=== PATIENT | male | born 1975 | race Caucasian/White ===

== ENCOUNTER 2017-03-01 10:52 | Emergency (ER) | payer BC ==
[2017-03-01] MEDS ORDERED: Sodium Chloride 0.9% 1,000 ML IV STA (11:17)
[2017-03-01] MEDS ORDERED: Atropine-Diphenoxylate 0.025-2.5 mg Tab PO STA (11:18)
[2017-03-01 11:19] VITALS: BP 119/78; PULSE 90; RESP 18; TEMP 99.1; O2SAT 96
--- NOTE | 2017-03-01 11:24 | ED PDOC ---
HPI: Abdomen Time Seen by Provider: 03/01/17 11:05 Chief Complaint (Nursing): Abdominal Pain Chief Complaint (Provider): Abdominal Pain History Per: Patient History/Exam Limitations: no limitations Onset/Duration Of Symptoms: Days (x this morning) Current Symptoms Are (Timing): Still Present Additional Complaint(s): Gadiel is a 41 year old male who presents to the emergency department complaining of diarrhea associated with lower abdominal pain since last night. Denies any fever, blood in stool, vomiting or recent travel outside of [facility]. PMD: Provider in [place] Past Medical History Reviewed: Historical Data, Nursing Documentation, Vital Signs Vital Signs: Last Vital Signs Temp 99.1 F 03/01/17 11:17 Pulse 90 03/01/17 11:17 Resp 18 03/01/17 11:17 BP 119/78 03/01/17 11:17 Pulse Ox 96 03/01/17 11:32 - Medical History PMH: HTN, Hypercholesterolemia, Hyperlipidemia Denies: HIV, Chronic Kidney Disease - Surgical History Surgical History: No Surg Hx - Family History Family History: States: Hypertension - Social History Alcohol: None Drugs: Denies - Home Medications Home Medications: Ambulatory Orders Medication Instructions Recorded Aspirin [Ecotrin] 81 mg PO DAILY #0 tabec 11/02/15 Atropine/Diphenoxylate [Lonox 1 tab PO Q8 #10 tab 03/01/17 0.025 MG-2.5 MG] - Allergies Allergies/Adverse Reactions: Allergies Allergy/AdvReac Type Severity Reaction Status Date / Time No Known Allergies Allergy Verified 03/01/17 11:07 Review of Systems ROS Statement: Except As Marked, All Systems Reviewed And Found Negative Constitutional: Negative for: Fever Gastrointestinal: Positive for: Abdominal Pain (Lower), Diarrhea. Negative for : Vomiting, Hematochezia Physical Exam - Reviewed Nursing Documentation Reviewed: Yes Vital Signs Reviewed: Yes - Physical Exam Cardiovascular/Chest: Positive for: Regular Rate, Rhythm Respiratory: Positive for: Normal Breath Sounds. Negative for: Respiratory Distress Gastrointestinal/Abdominal: Positive for: Tenderness (Miminal lower quadrant tenderness bilaterally) Extremity: Positive for: Normal ROM (Full ROM) - Laboratory Results Result Diagrams: 03/01/17 11:27 03/01/17 11:27 - ECG O2 Sat by Pulse Oximetry: 96 Medical Decision Making Medical Decision Making: Time: 11:17 Plan: - CMP - CBC - Lomotil 0.025-2.5 mg Tablet - Sodium Chloride 0.9% 1,000 ml IV 200 mls/hr Scribe Attestation: Documented by Shen Reyes, acting as a scribe for Pancho Triplett MD Provider Scribe Attestation: All medical record entries made by the Scribe were at my direction and personally dictated by me. I have reviewed the chart and agree that the record accurately reflects my personal performance of the history, physical exam, medical decision making, and the department course for this patient. I have also personally directed, reviewed, and agree with the discharge instructions and disposition. Disposition - Clinical Impression Clinical Impression: Gastroenteritis - Patient ED Disposition Is Patient to be Admitted: No Counseled Patient/Family Regarding: Studies Performed, Diagnosis, Need For Followup, Rx Given - Disposition Referrals: [facility] [Outside] Disposition: Routine/Home Disposition Time: 12:43 Condition: FAIR Prescriptions: Atropine/Diphenoxylate [Lonox 0.025 MG-2.5 MG] 1 tab PO Q8 #10 tab Instructions: Gastroenteritis (ED) Forms: [employer] (Danish)
[2017-03-01] MEDS ORDERED: Atropine-Diphenoxylate 0.025-2.5 mg Tab ONE (11:31)
[2017-03-01 12:01] LABS: ALB/GLOB RATIO 1.2 (1.0-2.1); ALBUMIN 4.4 g/dL (3.5-5.0); ALT/SGPT 37 U/L (21-72); AST/SGOT 59 U/L (17-59); BLOOD UREA NITROGEN 18 mg/dl (9-20); CALCIUM 8.9 mg/dL (8.4-10.2); GFR AFRICAN-AMERICAN > 60; GFR NON-AFRICAN AMERICAN > 60
[2017-03-01 12:02] LABS: BASO # 0.1 K/uL (0.0-0.2); BASO % 0.5 % (0.0-2.0); EOS % 0.3 % (0.0-4.0); HEMOGLOBIN 14.2 g/dL (12.0-18.0); LYMPH # 0.7 K/uL (1.0-4.3); LYMPH % 6.1 % (20.0-40.0); MEAN CELL VOLUME 95.4 fl (80.0-94.0); MEAN CORPUSCULAR HGB CONC 33.6 g/dL (33.0-37.0); MEAN PLATELET VOLUME 8.4 fl (7.2-11.7); MONO # 0.5 K/uL (0.0-0.8); MONO % 4.3 % (0.0-10.0); NEUT # 9.8 K/uL (1.8-7.0); NEUT % 88.8 % (50.0-75.0); PLATELET COUNT 303 K/uL (130-400); RBC 4.43 Mil/uL (4.40-5.90); WHITE BLOOD COUNT 11.1 K/uL (4.8-10.8)
[2017-03-01 12:59] LABS: LYMPHOCYTE 5 % (20-50); MONOCYTE 2 % (0-10); NEUTROPHIL 93 % (42-75); TOTAL CELLS COUNTED 100
[2017-03-01 13:01] LABS: PLATELET ESTIMATE NORMAL (NORMAL)
== END 2017-03-01 12:58 | disposition home or self-care (01) ==
LOC: H.ER 10:52
DX: K52.9 Noninfective gastroenteritis and colitis, unspecified (principal); E78.00 Pure hypercholesterolemia, unspecified; I10 Essential (primary) hypertension; Z79.82 Long term (current) use of aspirin
CPT/HCPCS: 80053; 85025; 96360; 99283; J7040

== ENCOUNTER 2018-06-17 01:18 | Emergency (ER) | payer SELFPAY ==
[2018-06-17 01:45] VITALS: PULSE 79; O2SAT 98
--- NOTE | 2018-06-17 02:03 | ED PDOC ---
HPI: Back Time Seen by Provider: 06/17/18 01:45 Chief Complaint (Nursing): Back Pain Chief Complaint (Provider): low back pain History Per: Patient History/Exam Limitations: no limitations Onset/Duration Of Symptoms: Days (6) Current Symptoms Are (Timing): Still Present Exacerbating Factor(s): Turning, Movement, Sitting, Standing Additional Complaint(s): 42 y/o male presents for evaluation of low back pain x 6 days. Patient states he woke up with the pain, which is worsened by movement and positional change. Patient states he he been working doubles at work since then, and pain still present. Patient admits to lifting heavy boxes filled with water the night prior to onset of pain, unknown if related. Denies fever, nausea/vomiting, n umbness/weakness lower extremities, bowel/bladder incontinence. Past Medical History Reviewed: Historical Data, Nursing Documentation, Vital Signs Vital Signs: Last Vital Signs Temp 98.0 F 06/17/18 01:41 Pulse 79 06/17/18 01:41 Resp 16 06/17/18 01:41 BP 158/92 H 06/17/18 01:41 Pulse Ox 98 06/17/18 01:41 Primary Care Provider: FAMILY PROVIDER,NO - Medical History PMH: HTN, Hypercholesterolemia, Hyperlipidemia Denies: HIV, Chronic Kidney Disease - Surgical History Surgical History: No Surg Hx - Family History Family History: States: Hypertension - Home Medications Home Medications: Ambulatory Orders Medication Instructions Recorded Aspirin [Ecotrin] 81 mg PO DAILY #0 tabec 11/02/15 Atropine/Diphenoxylate [Lonox 1 tab PO Q8 #10 tab 03/01/17 0.025 MG-2.5 MG] Cyclobenzaprine [Cyclobenzaprine 10 mg PO BID PRN #14 tab 06/17/18 HCl] Lidocaine 5% [Lidoderm] 1 patch TOP DAILY PRN #7 patch 06/17/18 Naproxen [Naprosyn] 500 mg PO Q12 PRN #14 tablet 06/17/18 - Allergies Allergies/Adverse Reactions: Allergies Allergy/AdvReac Type Severity Reaction Status Date / Time No Known Allergies Allergy Verified 03/01/17 11:07 Review of Systems ROS Statement: Except As Marked, All Systems Reviewed And Found Negative Musculoskeletal: Positive for: Back Pain Physical Exam - Reviewed Nursing Documentation Reviewed: Yes Vital Signs Reviewed: Yes - Physical Exam Appears: Positive for: Well, Non-toxic, No Acute Distress Head Exam: Positive for: ATRAUMATIC, NORMAL INSPECTION, NORMOCEPHALIC Cardiovascular/Chest: Positive for: Regular Rate, Rhythm Respiratory: Positive for: Normal Breath Sounds Back: Positive for: Vertebral Tenderness (upper lspine tenderness without bony deformity), Muscle Spasm (bilateral lumbar paraspinal tenderness). Negative for: L CVA Tenderness, R CVA Tenderness, Decreased ROM Extremity: Positive for: Normal ROM Neurological/Psych: Positive for: Awake, Alert, Oriented (x3) - ECG O2 Sat by Pulse Oximetry: 98 - Other Rad lspine xray X-Ray: Viewed By Ny X-Ray Interpretation: no acute findings - Progress ED Course And Treament: -Toradol IM -Flexeril PO -lspine xray On re-eval, patient states he is feeling better Patient educated on findings, discharged with rx Naproxen, Flexeril, Lidoderm Advised rest, warm compresses Follow up PMD within 2-3 days Return precautions given Disposition - Clinical Impression Clinical Impression: Low back pain - Patient ED Disposition Is Patient to be Admitted: No Counseled Patient/Family Regarding: Studies Performed, Diagnosis, Need For Followup, Rx Given - Disposition Referrals: [facility] [place] [Outside] Disposition: Routine/Home Disposition Time: 03:48 Condition: IMPROVED Prescriptions: Cyclobenzaprine [Cyclobenzaprine HCl] 10 mg PO BID PRN #14 tab PRN Reason: Muscle Spasm Lidocaine 5% [Lidoderm] 1 patch TOP DAILY PRN #7 patch PRN Reason: Pain Naproxen [Naprosyn] 500 mg PO Q12 PRN #14 tablet PRN Reason: Pain, Moderate (4-7) Instructions: Low Back Pain in Adults Forms: [facility] ED School/Work Excuse Print Language: GIBRALTARIAN
[2018-06-17 03:59] VITALS: BP 132/82; RESP 18; TEMP 98.4
--- NOTE | 2018-06-17 07:58 | RAD ---
Date of service: 06/17/2018 PROCEDURE: Radiographs of the Lumbar Spine. HISTORY: pain COMPARISON: No prior. TECHNIQUE: 5 views obtained. FINDINGS: BONES: Normal alignment. No listhesis. No fracture. Normal vertebral body heights throughout. DISC SPACES: Borderline disc height loss at L4-5 may indicate limited element of degenerative disease here remaining intervertebral disc heights normal. Limited incidental inferior thoracic spondylosis. OTHER FINDINGS: None. IMPRESSION: No acute lumbar fracture or spondylolisthesis. 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
== END 2018-06-17 03:58 | disposition home or self-care (01) ==
LOC: H.ER 01:18
DX: M54.5 Low back pain (principal); E78.00 Pure hypercholesterolemia, unspecified; I10 Essential (primary) hypertension; M51.36 Other intervertebral disc degeneration, lumbar region; Z79.82 Long term (current) use of aspirin
CPT/HCPCS: 72100; 96372; 99283; J1885